=== PATIENT | male | born 2000 | race Two or more races ===

== ENCOUNTER 2021-01-28 01:08 | Emergency (ER) | payer SELFPAY ==
[~2021-01-28] VITALS: Ht 167.6 cm; Wt 95.3 kg
[2021-01-28 01:11] VITALS: BP 155/96
== END 2021-01-28 05:55 | disposition left against medical advice (07) ==
LOC: ER 01:17
DX: M25.572 Pain in left ankle and joints of left foot (principal); Z53.21 Procedure and treatment not carried out due to patient leaving prior to being seen by health care provider; X50.1XXA Overexertion from prolonged static or awkward postures, initial encounter; Y93.89 Activity, other specified; Y92.89 Other specified places as the place of occurrence of the external cause; Y99.8 Other external cause status
CPT/HCPCS: 73610; 73630